=== PATIENT | female | born 1940 | race Caucasian/White ===

== ENCOUNTER → 2016-09-17 | Outpatient (CLI) | payer OTHER | END | disposition home or self-care (01) | LOC: PCVCCLINIC 10:48 | PROVIDERS: ATTEND Internal Medicine Cardiovascular Disease | DX: I10 Essential (primary) hypertension (principal); E78.00 Pure hypercholesterolemia, unspecified; G45.9 Transient cerebral ischemic attack, unspecified; Z86.73 Personal history of transient ischemic attack (TIA), and cerebral infarction without residual deficits; Z79.82 Long term (current) use of aspirin; Z79.899 Other long term (current) drug therapy; Z85.3 Personal history of malignant neoplasm of breast | CPT/HCPCS: 80061; 93005; G0463 ==

== ENCOUNTER → 2017-07-09 | Outpatient (CLI) | payer OTHER | END | disposition home or self-care (01) | LOC: PCVCCLINIC 12:26 | DX: I10 Essential (primary) hypertension (principal); E78.00 Pure hypercholesterolemia, unspecified; R09.89 Other specified symptoms and signs involving the circulatory and respiratory systems; R94.31 Abnormal electrocardiogram [ECG] [EKG]; Z82.49 Family history of ischemic heart disease and other diseases of the circulatory system; Z79.82 Long term (current) use of aspirin; Z79.899 Other long term (current) drug therapy | CPT/HCPCS: 80061; 93005; G0463 ==

== ENCOUNTER → 2018-01-27 | Outpatient (CLI) | payer OTHER ==
--- NOTE | 2018-01-27 11:06 | PCVCIMAG ---
APPROVED REPORT Laterality: Bilateral Patient Location: Out-Patient Doppler Spectral Velocity Analysis PSV / EDVPSV / EDV ECA (R) 86 / 8 cm/sECA (L) 71 / 12 cm/s dICA (R) 38 / 14 cm/sdICA (L) 49 / 16 cm/s Camelia (R) 55 / 23 cm/smICA (L) 52 / 21 cm/s pICA (R) 46 / 16 cm/spICA (L) 52 / 15 cm/s Bulb (R) 34 / 10 cm/sBulb (L) 52 / 15 cm/s dCCA (R) 48 / 17 cm/sdCCA (L) 56 / 14 cm/s mCCA (R) 75 / 17 cm/smCCA (L) 78 / 17 cm/s Vert (R) 57 / 17 cm/sVert (L) 52 / 22 cm/s ICA/CCA 1.15 ICA/CCA 0.93 Findings The right carotid bulb has no significant plaque. The right proximal internal carotid artery shows no significant stenosis. The right common carotid artery shows no significant stenosis. The right external carotid artery shows no significant stenosis. The left carotid bulb has no significant plaque. The left proximal internal carotid artery shows no significant stenosis. The left common carotid artery shows no significant stenosis. The left external carotid artery shows no significant stenosis. Conclusion 1. No significant plaquing/stenosis involving either carotid artery 2. Antegrade vertebral flow
--- NOTE | 2018-01-31 18:07 | PCVCIMAG ---
APPROVED REPORT Study performed: 01/27/2018 11:02:45 Exam: Stress Echocardiogram Indication: Hyperlipidemia, Hyperlipidemia Patient Location: Echo lab Stress Nurse: Briseida Ca RN Status: routine Ht: 5 ft 3 in HR: 61 bpm BP: 116/70 mmHg Rhythm: NSR Medical History Medical History: Family Hx CAD Procedure The patient underwent an Exercise Stress Test using the Osmel Protocol. Blood pressure, heart rate, and EKG were monitored. An Echocardiogram was performed by master sonar technician in four stages in quad fashion. At peak stress, four selected images were obtained and placed side by side with resting images for comparison. Stress Test Details Stress Test: Exercise stress testing was performed using a Osmel protocol. HR Resting HR: 61 bpmMax Heart Rate (APMHR): 141 bpm Max HR Achieved: 136 bpmTarget HR (85% APMHR): 119 bpm % of APMHR: 96 Recovery HR: 84 bpm HR response to stress: Normal HR response to stress BP Resting BP: 116/70 mmHg Max BP: 160/70 mmHg Recovery BP: 136/74 mmHg ECG Resting ECG: Sinus Rhythm Stress ECG: Sinus Rhythm Recovery ECG: Sinus Rhythm Clinical Reason for Termination: Maximal effort Exercise duration: 8 min 00 sec Highest Stage Achieved: Stage 3: 3.4 mph at 14% grade. Exercise capacity: 10.10 METs Overall Exercise Capacity for Age: Good Stress ECG Conclusion ECG: Non-ischemic Clinical: Non-ischemic Pre-Stress Echo The resting Echocardiogram showed normal left ventricular contractility with an estimated Ejection Fraction of about >55%. Normal wall motion in all segments on baseline images. Post-Stress Echo The stress Echocardiogram showed normal left ventricular contractility with an estimated Ejection Fraction of about 60-65%. Normal augmentation of wall motion in all segments on post stress images. Clinical No clinical or ECG evidence for ischemia. Conclusion Clinical Response: Non-ischemic Exercise Capacity: Superior Stress ECG Response: Non-ischemic Stress Echo Images: Non-ischemic The left ventricle is normal in size and wall thickness in both the rest and stress images. Other Information Study Quality: Good <Conclusion> The left ventricle is normal in size and wall thickness in both the rest and stress images.
== END | disposition home or self-care (01) ==
LOC: PCVCIMAG 13:53
PROVIDERS: ATTEND Internal Medicine Cardiovascular Disease
DX: R09.89 Other specified symptoms and signs involving the circulatory and respiratory systems (principal); I10 Essential (primary) hypertension; E78.00 Pure hypercholesterolemia, unspecified; R07.9 Chest pain, unspecified; Z82.49 Family history of ischemic heart disease and other diseases of the circulatory system
CPT/HCPCS: 93325; 93351; 93880

== ENCOUNTER → 2019-03-03 | Outpatient (CLI) | payer OTHER | END | disposition home or self-care (01) | LOC: PCVCCLINIC 15:55 | PROVIDERS: ATTEND Internal Medicine Cardiovascular Disease | DX: I10 Essential (primary) hypertension (principal); R07.9 Chest pain, unspecified; E78.00 Pure hypercholesterolemia, unspecified; F41.9 Anxiety disorder, unspecified; Z82.49 Family history of ischemic heart disease and other diseases of the circulatory system; Z79.82 Long term (current) use of aspirin; Z79.899 Other long term (current) drug therapy | CPT/HCPCS: 36415; 80061; 93005; G0463 ==